=== PATIENT | male | born 1965 | race Caucasian/White ===

== ENCOUNTER 2025-03-07 07:20 | Inpatient (IN) | payer MEDICAID ==
[2025-03-07] MEDS: LORazepam 2 MG/ML SDV IVPUSH ONE ×3 (07:42→14:27)
[2025-03-07] MEDS: Thiamine 200 MG/2 ML MDV IVPUSH ONE (07:45)
[2025-03-07] MEDS: Sodium Chloride 0.9% 10 ML Syringe FLUSH PRN (07:50)
[2025-03-07 07:52] LABS: BASOPHILS ABSOLUTE AUTO 0.0 x10-3/uL (0.0-0.3); BASOPHILS PERCENT AUTO 0.5 % (0.3-3.8); EOSINOPHILS ABSOLUTE AUTO 0.0 x10-3/uL (0.0-0.6); EOSINOPHILS PERCENT AUTO 0.3 % (0.1-6.8); LYMPHOCYTES ABSOLUTE AUTO 0.4 x10-3/uL (0.5-4.5); LYMPHOCYTES PERCENT AUTO 5.5 % (15.8-45.3); MEAN PLATELET VOLUME 9.5 fL (6.7-11.0); MONOCYTES ABSOLUTE AUTO 1.0 x10-3/uL (0.0-1.2); MONOCYTES PERCENT AUTO 13.5 % (5.5-15.2); NEUTROPHILS ABSOLUTE AUTO 6.0 x10-3/uL (1.7-6.9); NEUTROPHILS PERCENT AUTO 80.2 % (40.3-71.8); RED BLOOD CELL COUNT 3.54 x10(6)uL (3.90-5.90); RED CELL DISTRIBUTION WIDTH 13.9 % (12.4-15.0); WHITE BLOOD CELL COUNT,WBC 7.5 x10-3/uL (3.2-10.1)
[2025-03-07 08:09] LABS: A/G RATIO 0.9; BILIRUBIN TOTAL 6.6 mg/dL (0.1-1.3); BLOOD UREA NITROGEN,BUN 10 mg/dL (7-18); CARBON DIOXIDE,CO2 24 mmol/L (21-32); CREATININE 1.7 mg/dL (0.70-1.30); EST CRCL DRUG DOSING (CG) 47.12 mL/min; ESTIMATED GFR 45 mL/min (>60); GLUCOSE RANDOM 176 mg/dL (80-116); PROTEIN TOTAL,TP 7.4 g/dL (6.0-8.0); SODIUM,NA 131 mmol/L (135-145)
[2025-03-07 08:14] LABS: PLATELET COUNT,PLT 75 x10(3)uL (117-477)
[2025-03-07 08:19] LABS: CHLORIDE,CL 89 mmol/L (100-110); POTASSIUM,K 2.2 mmol/L (3.5-5.3)
[2025-03-07 08:20] LABS: ALANINE AMINOTRANSFERASE,ALT 262 U/L (12-36); ASPARTATE AMNIOTRANSFERASE,AST 312 IU/L (5-25)
[2025-03-07] MEDS: Potassium Chloride 20 MEQ in Premix Bag 1 BAG IV ONE ×4 (08:30→23:24)
[2025-03-07 08:40] LABS: ETHANOL BLOOD MEDICAL < 0.03 % (<0.03)
[2025-03-07] MEDS: Magnesium Sulfate 2 GM/50 mL 2 GM in Premix Bag 1 BAG IV ONE ×2 (08:55→14:20)
[2025-03-07 10:17] LABS: INR 1.11 (1.00-1.24)
[2025-03-07] MEDS: Iopamidol 755 Mg/ML 100 ML Bottle IV SCH (10:32)
[2025-03-07] MEDS: MVI, Adult with Vitamin K 10 ML SDV IV ONE (10:36)
[2025-03-07 12:30] LABS: GLUCOSE,URINE NORMAL (NORMAL); OCCULT BLOOD,URINE NEGATIVE (NEGATIVE)
[2025-03-07 12:36] LABS: APPEARANCE,URINE CLEAR (CLEAR); SQUAMOUS EPITHELIAL CELLS,UR OCCASIONAL (NS,R,O)
[2025-03-07 12:41] LABS: AMPHETAMINES SCREEN, URINE NEGATIVE (NEGATIVE); METHADONE SCREEN, URINE NEGATIVE (NEGATIVE); METHAMPHETAMINE SCREEN, URINE NEGATIVE (NEGATIVE); OXYCODONE SCREEN,URINE NEGATIVE (NEGATIVE)
[2025-03-07 12:42] LABS: BUPRENORPHINE SCREEN,URINE NEGATIVE (NEGATIVE)
[2025-03-07 13:33] LABS: BLOOD UREA NITROGEN,BUN 7 mg/dL (7-18); CARBON DIOXIDE,CO2 28 mmol/L (21-32); CHLORIDE,CL 96 mmol/L (100-110); CREATININE 1.1 mg/dL (0.70-1.30); EST CRCL DRUG DOSING (CG) 72.82 mL/min; ESTIMATED GFR 76 mL/min (>60); GLUCOSE RANDOM 89 mg/dL (80-116); SODIUM,NA 134 mmol/L (135-145)
[2025-03-07 13:44] LABS: POTASSIUM,K 2.6 mmol/L (3.5-5.3)
[2025-03-07 14:22] LABS: AMMONIA, PLASMA 165
[2025-03-07] MEDS: Potassium Chloride 20 MEQ Tab.ER PO SCH (20:36)
[2025-03-07 22:51] LABS: BLOOD UREA NITROGEN,BUN 7 mg/dL (7-18); CARBON DIOXIDE,CO2 28 mmol/L (21-32); CHLORIDE,CL 101 mmol/L (100-110); CREATININE 1.0 mg/dL (0.70-1.30); EST CRCL DRUG DOSING (CG) 80.10 mL/min; ESTIMATED GFR 86 mL/min (>60); GLUCOSE RANDOM 108 mg/dL (80-116); SODIUM,NA 135 mmol/L (135-145)
[2025-03-07 22:53] LABS: POTASSIUM,K 2.5 mmol/L (3.5-5.3)
[2025-03-08] MEDS: Magnesium Sulfate 2 GM/50 mL 2 GM in Premix Bag 1 BAG IV ONE (01:16)
[2025-03-08 06:36] LABS: A/G RATIO 0.8; BILIRUBIN TOTAL 5.4 mg/dL (0.1-1.3); BLOOD UREA NITROGEN,BUN 6 mg/dL (7-18); CARBON DIOXIDE,CO2 27 mmol/L (21-32); CHLORIDE,CL 103 mmol/L (100-110); CREATININE 0.9 mg/dL (0.70-1.30); EST CRCL DRUG DOSING (CG) 89.00 mL/min; ESTIMATED GFR 97 mL/min (>60); GLUCOSE RANDOM 90 mg/dL (80-116); PROTEIN TOTAL,TP 5.6 g/dL (6.0-8.0); SODIUM,NA 138 mmol/L (135-145)
[2025-03-08 06:46] LABS: ALANINE AMINOTRANSFERASE,ALT 180 U/L (12-36); ASPARTATE AMNIOTRANSFERASE,AST 247 IU/L (5-25); POTASSIUM,K 2.8 mmol/L (3.5-5.3)
[2025-03-08 11:20] LABS: BASOPHILS ABSOLUTE AUTO 0.0 x10-3/uL (0.0-0.3); BASOPHILS PERCENT AUTO 0.3 % (0.3-3.8); EOSINOPHILS ABSOLUTE AUTO 0.1 x10-3/uL (0.0-0.6); EOSINOPHILS PERCENT AUTO 1.6 % (0.1-6.8); LYMPHOCYTES ABSOLUTE AUTO 0.7 x10-3/uL (0.5-4.5); LYMPHOCYTES PERCENT AUTO 11.4 % (15.8-45.3); MEAN PLATELET VOLUME 9.2 fL (6.7-11.0); MONOCYTES ABSOLUTE AUTO 0.9 x10-3/uL (0.0-1.2); MONOCYTES PERCENT AUTO 13.7 % (5.5-15.2); NEUTROPHILS ABSOLUTE AUTO 4.6 x10-3/uL (1.7-6.9); NEUTROPHILS PERCENT AUTO 73.0 % (40.3-71.8); PLATELET COUNT,PLT 75 x10(3)uL (117-477); RED BLOOD CELL COUNT 3.10 x10(6)uL (3.90-5.90); RED CELL DISTRIBUTION WIDTH 14.7 % (12.4-15.0); WHITE BLOOD CELL COUNT,WBC 6.3 x10-3/uL (3.2-10.1)
[2025-03-08] MEDS: Potassium Chloride 20 MEQ in Premix Bag 1 BAG IV SCH (12:42)
[2025-03-08] MEDS: Ampicillin/Sulbactam Na 1.5 GM in Sodium Chloride 0.9% 50 ML IV SCH (13:02)
[2025-03-09 06:38] LABS: A/G RATIO 0.7; BILIRUBIN TOTAL 5.0 mg/dL (0.1-1.3); CARBON DIOXIDE,CO2 27 mmol/L (21-32); CHLORIDE,CL 103 mmol/L (100-110); CREATININE 0.9 mg/dL (0.70-1.30); EST CRCL DRUG DOSING (CG) 89.00 mL/min; ESTIMATED GFR 97 mL/min (>60); GLUCOSE RANDOM 102 mg/dL (80-116); POTASSIUM,K 4.1 mmol/L (3.5-5.3); PROTEIN TOTAL,TP 5.8 g/dL (6.0-8.0); SODIUM,NA 136 mmol/L (135-145)
[2025-03-09 06:39] LABS: BLOOD UREA NITROGEN,BUN < 5 mg/dL (7-18)
[2025-03-09 06:40] LABS: ALANINE AMINOTRANSFERASE,ALT 185 U/L (12-36)
[2025-03-09 06:41] LABS: ASPARTATE AMNIOTRANSFERASE,AST 263 IU/L (5-25)
[2025-03-09] MEDS: Magnesium Sulfate 2 GM/50 mL 2 GM in Premix Bag 1 BAG IV ONE (09:05)
[2025-03-10 19:19] LABS: HEPATITIS A ANTIBODY, IGM Negative (Negative); HEPATITIS C AB CIA INTERP Negative (Negative); HEPATITIS C ANTIBODY CIA INDEX 0.04 IV
[2025-03-10 22:00] LABS: LEGIONELLA PNEUMOPHILA AG,URN Negative (Negative)
[2025-03-10 23:30] LABS: STREPTOCOCCUS PNEUMONIAE AG,UR Negative (Negative)
== END 2025-03-09 14:30 | disposition home or self-care (01) | DRG 896 ==
LOC: FB.ED 07:20 → FB.MS 16:56
PROVIDERS: ADMIT Internal Medicine; ATTEND Internal Medicine
PROC: HZ2ZZZZ Detoxification Services for Substance Abuse Treatment (ICD-10-PCS; principal; 2025-03-07)
DX: F10.139 Alcohol abuse with withdrawal, unspecified (principal); J69.0 Pneumonitis due to inhalation of food and vomit; N17.9 Acute kidney failure, unspecified; E87.1 Hypo-osmolality and hyponatremia; I10 Essential (primary) hypertension; E87.6 Hypokalemia; F32.A Depression, unspecified; E86.0 Dehydration; K70.10 Alcoholic hepatitis without ascites; R74.01 Elevation of levels of liver transaminase levels; E83.42 Hypomagnesemia; E80.6 Other disorders of bilirubin metabolism; K76.0 Fatty (change of) liver, not elsewhere classified; R56.9 Unspecified convulsions; Z79.899 Other long term (current) drug therapy; Z96.659 Presence of unspecified artificial knee joint
CPT/HCPCS: 36415; 70450; 71045; 74177; 80048; 80053; 80074; 80307; 81001; 82140; 82248; 82947; 83690; 83735; 84132; 84484; 85025; 85610; 87040; 87077; 87426-QW; 87449; 87899; 93005; 93010; 94150; 96361; 96365; 96366; 96367; 96368; 96375; 96376; 99223; 99238; 99285; 99285-25; A9270-GY; J0295; J2060; J3411; J3475; J3480; J7030; J7512; Q9967